=== PATIENT | female | born 1950 | race Caucasian/White ===

== ENCOUNTER 2020-08-09 16:02 | Inpatient (IN) ==
[2020-08-09] MEDS ORDERED: Naloxone 0.4 MG/ML INJ IVP PRN (17:59)
[2020-08-09] MEDS ORDERED: Acetaminophen 325 MG TABLET PO PRN (17:59)
[2020-08-09] MEDS ORDERED: Perflutren Lipid Microsphere 1.3 ML in 0.9 % Sodium Chloride 8.7 ML IVP PRN (17:59)
[2020-08-09] MEDS ORDERED: Vancomycin 0 MG in 0.9 % Sodium Chloride 250 ML IVPB SCH (18:00)
[2020-08-09] MEDS ORDERED: Azithromycin 500 MG in 0.9 % Sodium Chloride 250 ML IVPB SCH (18:00)
[2020-08-09 18:44] LABS: Basophils % 0.1 %; Hematocrit 35.2 % (35.3-44.9); Hemoglobin 12.2 g/dL (11.5-15.4); Immature Granulocytes % 0.5 % (0-4); Lymphocytes # 2.1 K/mcL (0.6-4.6); Lymphocytes % 12.3 %; Mean Corpuscular HGB Conc 34.7 g/dL (31.6-35.5); Mean Corpuscular Hemoglobin 28.8 pg (28.0-33.3); Mean Corpuscular Volume 83.2 fL (83.0-100.0); Mean Platelet Volume 9.1 fL (9.4-12.4); Neutrophils # 13.7 K/mcL (1.6-8.9); Platelet Count 285 K/mcL (140-400); Red Blood Count 4.23 M/mcL (3.82-4.97); Segmented Neutrophils % 81.1 %; White Blood Count 16.9 K/mcL (4.3-11.1)
[2020-08-09 18:44] LABS: Bilirubin,Urine Negative (Negative); Blood,Urine Negative (Negative); Clarity,Urine Clear (Clear); Color,Urine Colorless (Yellow); Glucose,Urine (UA) Normal (Normal); Ketones,Urine Negative (Negative); Leukocyte Esterase,Urine Negative (Negative); Nitrite,Urine Negative (Negative); PH,Urine 6.5 pH Units (5.0-8.0); Protein,Urine Negative (Neg-Trace); Specific Gravity,Urine < 1.005 (1.010-1.025); Urobilinogen,Urine Normal (Normal)
[2020-08-09] MEDS: *HR* OxyCODONE Immed Rel 5 MG TABLET PO PRN (18:50)
[2020-08-09] MEDS: Fluconazole 100 MG TABLET PO SCH (18:50)
[2020-08-09 18:52] LABS: Potassium,Urine 6.4 mEq/L; Sodium, Urine 10.8 mEq/L
[2020-08-09 19:03] LABS: Troponin I < 0.03 ng/mL (< 0.04)
[2020-08-09] MEDS: Piperacillin/Tazobactam 3.375 GM in 0.9 % Sodium Chloride Mini Bag 100 ML IVPB SCH ×2 (19:08→23:50)
[2020-08-09 19:34] LABS: Alanine Aminotransferase 18 Units/L (7-52); Albumin 3.8 g/dL (3.5-5.7); Albumin/Globulin Ratio 1.5 (1.1-2.2); Alkaline Phosphatase 41 Units/L (34-104); Aspartate Amino Transferase 25 Units/L (13-39); BUN/Creatinine Ratio 16 (6-26); Bilirubin,Direct 0.1 mg/dL (0.0-0.2); Bilirubin,Indirect 0.5 mg/dL (0.0-1.0); Bilirubin,Total 0.6 mg/dL (0.3-1.0); Blood Urea Nitrogen 5 mg/dL (8-23); Calcium 7.9 mg/dL (8.6-10.3); Carbon Dioxide 26 mEq/L (23-29); Chloride 81 mEq/L (98-107); Globulin 2.5 g/dL (2.4-3.5); Glucose 119 mg/dL (70-105); Magnesium 1.7 mg/dL (1.6-2.6); Osmolality,Calculated 240 (280-300); Phosphorous 1.7 mg/dL (2.7-4.5); Potassium 3.5 mEq/L (3.5-5.1); Sodium 116 mEq/L (136-145); Total Protein 6.3 g/dL (6.4-8.9); eGFR For African Americans > 60 (> 60); eGFR For Non-African Americans > 60 (> 60)
[2020-08-09] MEDS ORDERED: Acetaminophen/Aspirin/Caffeine TABLET PO PRN (19:58)
[2020-08-09 20:39] LABS: Thyroid Stimulating Hormone 0.841 mcIU/mL (0.340-5.600)
[2020-08-09 22:08] LABS: BUN/Creatinine Ratio 11 (6-26); Blood Urea Nitrogen 4 mg/dL (8-23); Calcium 7.2 mg/dL (8.6-10.3); Carbon Dioxide 27 mEq/L (23-29); Chloride 84 mEq/L (98-107); Glucose 127 mg/dL (70-105); Osmolality,Calculated 242 (280-300); Potassium 3.2 mEq/L (3.5-5.1); Sodium 117 mEq/L (136-145); eGFR For African Americans > 60 (> 60); eGFR For Non-African Americans > 60 (> 60)
[2020-08-09 22:13] LABS: Troponin I < 0.03 ng/mL (< 0.04)
[2020-08-09 23:47] LABS: BUN/Creatinine Ratio 10 (6-26); Blood Urea Nitrogen 5 mg/dL (8-23); Calcium 7.4 mg/dL (8.6-10.3); Carbon Dioxide 27 mEq/L (23-29); Chloride 85 mEq/L (98-107); Glucose 123 mg/dL (70-105); Osmolality,Calculated 245 (280-300); Potassium 3.1 mEq/L (3.5-5.1); Sodium 118 mEq/L (136-145); eGFR For African Americans > 60 (> 60); eGFR For Non-African Americans > 60 (> 60)
[2020-08-09] MEDS: *HR* Heparin 5,000 UNIT/ML VIAL SQ SCH (23:49)
[2020-08-10] MEDS: *HR* OxyCODONE Immed Rel 5 MG TABLET PO PRN ×4 (00:19→19:25)
[2020-08-10] MEDS ORDERED: Potassium Phosphate 44 MEQ in 0.9 % Sodium Chloride 250 ML IVPB ONE (00:30)
[2020-08-10 02:21] LABS: BUN/Creatinine Ratio 14 (6-26); Blood Urea Nitrogen 7 mg/dL (8-23); Calcium 7.5 mg/dL (8.6-10.3); Carbon Dioxide 27 mEq/L (23-29); Chloride 85 mEq/L (98-107); Glucose 103 mg/dL (70-105); Osmolality,Calculated 244 (280-300); Potassium 3.6 mEq/L (3.5-5.1); Sodium 118 mEq/L (136-145); Troponin I < 0.03 ng/mL (< 0.04); eGFR For African Americans > 60 (> 60); eGFR For Non-African Americans > 60 (> 60)
[2020-08-10 03:30] LABS: VBG Ionized Calcium 1.09 mmol/L (1.15-1.35)
[2020-08-10 03:53] LABS: Basophils % 0.1 %; Eosinophils % 0.1 %; Hematocrit 32.1 % (35.3-44.9); Hemoglobin 10.8 g/dL (11.5-15.4); Immature Granulocytes % 0.4 % (0-4); Lymphocytes # 1.8 K/mcL (0.6-4.6); Lymphocytes % 20.4 %; Mean Corpuscular HGB Conc 33.6 g/dL (31.6-35.5); Mean Corpuscular Hemoglobin 28.5 pg (28.0-33.3); Mean Corpuscular Volume 84.7 fL (83.0-100.0); Mean Platelet Volume 9.1 fL (9.4-12.4); Monocytes # 0.9 K/mcL (0.0-1.3); Monocytes % 9.7 %; Neutrophils # 6.2 K/mcL (1.6-8.9); Platelet Count 251 K/mcL (140-400); Red Blood Count 3.79 M/mcL (3.82-4.97); Red Cell Distribution Width 12.2 % (11.5-14.5); Segmented Neutrophils % 69.3 %; White Blood Count 8.9 K/mcL (4.3-11.1)
[2020-08-10 04:01] LABS: BUN/Creatinine Ratio 14 (6-26); Blood Urea Nitrogen 7 mg/dL (8-23); Calcium 7.6 mg/dL (8.6-10.3); Carbon Dioxide 28 mEq/L (23-29); Chloride 86 mEq/L (98-107); Glucose 115 mg/dL (70-105); Magnesium 1.9 mg/dL (1.6-2.6); Osmolality,Calculated 247 (280-300); Phosphorous 3.7 mg/dL (2.7-4.5); Potassium 3.6 mEq/L (3.5-5.1); Sodium 119 mEq/L (136-145); eGFR For African Americans > 60 (> 60); eGFR For Non-African Americans > 60 (> 60)
[2020-08-10 06:00] LABS: BUN/Creatinine Ratio 12 (6-26); Blood Urea Nitrogen 6 mg/dL (8-23); Calcium 7.6 mg/dL (8.6-10.3); Carbon Dioxide 29 mEq/L (23-29); Chloride 87 mEq/L (98-107); Glucose 117 mg/dL (70-105); Osmolality,Calculated 251 (280-300); Potassium 3.6 mEq/L (3.5-5.1); Sodium 121 mEq/L (136-145); eGFR For African Americans > 60 (> 60); eGFR For Non-African Americans > 60 (> 60)
[2020-08-10] MEDS: *HR* Heparin 5,000 UNIT/ML VIAL SQ SCH ×2 (07:17→15:07)
[2020-08-10] MEDS: Piperacillin/Tazobactam 3.375 GM in 0.9 % Sodium Chloride Mini Bag 100 ML IVPB SCH (07:17)
[2020-08-10] MEDS: Fluconazole 100 MG TABLET PO SCH (07:17)
[2020-08-10] MEDS ORDERED: Vancomycin 1,750 MG/517.5 ML IV.SOLN IVPB SCH (08:00)
[2020-08-10 08:51] LABS: BUN/Creatinine Ratio 12 (6-26); Blood Urea Nitrogen 6 mg/dL (8-23); Calcium 7.7 mg/dL (8.6-10.3); Carbon Dioxide 30 mEq/L (23-29); Chloride 87 mEq/L (98-107); Glucose 102 mg/dL (70-105); Osmolality,Calculated 252 (280-300); Potassium 3.9 mEq/L (3.5-5.1); Sodium 122 mEq/L (136-145); eGFR For African Americans > 60 (> 60); eGFR For Non-African Americans > 60 (> 60)
[2020-08-10 09:56] LABS: BUN/Creatinine Ratio 12 (6-26); Blood Urea Nitrogen 6 mg/dL (8-23); Calcium 7.8 mg/dL (8.6-10.3); Carbon Dioxide 30 mEq/L (23-29); Chloride 90 mEq/L (98-107); Glucose 133 mg/dL (70-105); Osmolality,Calculated 260 (280-300); Potassium 3.7 mEq/L (3.5-5.1); Sodium 125 mEq/L (136-145); eGFR For African Americans > 60 (> 60); eGFR For Non-African Americans > 60 (> 60)
[2020-08-10] MEDS ORDERED: lamoTRIgine 100 MG TABLET PO SCH (10:15)
[2020-08-10] MEDS ORDERED: ALPRAZolam 1 MG TABLET PO SCH (10:15)
[2020-08-10] MEDS ORDERED: D5% in Water 1,000 ML IVC SCH ×2 (10:15→12:58)
[2020-08-10 11:43] LABS: BUN/Creatinine Ratio 12 (6-26); Blood Urea Nitrogen 7 mg/dL (8-23); Calcium 7.6 mg/dL (8.6-10.3); Carbon Dioxide 31 mEq/L (23-29); Chloride 91 mEq/L (98-107); Glucose 116 mg/dL (70-105); Osmolality,Calculated 259 (280-300); Potassium 3.9 mEq/L (3.5-5.1); Sodium 125 mEq/L (136-145); eGFR For African Americans > 60 (> 60); eGFR For Non-African Americans > 60 (> 60)
[2020-08-10] MEDS ORDERED: Naloxone 0.4 MG/ML INJ IVP PRN (12:58)
[2020-08-10 14:07] LABS: BUN/Creatinine Ratio 12 (6-26); Blood Urea Nitrogen 8 mg/dL (8-23); Carbon Dioxide 28 mEq/L (23-29); Chloride 90 mEq/L (98-107); Glucose 144 mg/dL (70-105); Osmolality,Calculated 259 (280-300); Potassium 3.8 mEq/L (3.5-5.1); Sodium 124 mEq/L (136-145); eGFR For African Americans > 60 (> 60); eGFR For Non-African Americans > 60 (> 60)
[2020-08-10] MEDS ORDERED: Piperacillin/Tazobactam 3.375 GM in D5% in Water (Mini-Bag+) 100 ML IVPB SCH ×2 (16:00)
[2020-08-10 16:01] LABS: BUN/Creatinine Ratio 13 (6-26); Blood Urea Nitrogen 10 mg/dL (8-23); Calcium 7.9 mg/dL (8.6-10.3); Carbon Dioxide 29 mEq/L (23-29); Chloride 90 mEq/L (98-107); Glucose 116 mg/dL (70-105); Osmolality,Calculated 258 (280-300); Potassium 3.9 mEq/L (3.5-5.1); Sodium 124 mEq/L (136-145); eGFR For African Americans > 60 (> 60); eGFR For Non-African Americans > 60 (> 60)
[2020-08-10 17:46] LABS: BUN/Creatinine Ratio 13 (6-26); Blood Urea Nitrogen 11 mg/dL (8-23); Calcium 8.1 mg/dL (8.6-10.3); Carbon Dioxide 30 mEq/L (23-29); Chloride 91 mEq/L (98-107); Glucose 113 mg/dL (70-105); Osmolality,Calculated 262 (280-300); Potassium 3.9 mEq/L (3.5-5.1); Sodium 126 mEq/L (136-145); eGFR For African Americans > 60 (> 60); eGFR For Non-African Americans > 60 (> 60)
[2020-08-10] MEDS ORDERED: Azithromycin 250 MG TABLET PO SCH ×2 (18:00)
[2020-08-10] MEDS: lamoTRIgine 100 MG TABLET PO SCH (19:25)
[2020-08-10] MEDS: ALPRAZolam 1 MG TABLET PO SCH (19:26)
[2020-08-10] MEDS ORDERED: Vancomycin 1,750 MG in D5% in Water 500 ML IVPB SCH ×2 (20:00)
[2020-08-10 20:45] LABS: BUN/Creatinine Ratio 14 (6-26); Blood Urea Nitrogen 12 mg/dL (8-23); Calcium 7.9 mg/dL (8.6-10.3); Carbon Dioxide 30 mEq/L (23-29); Chloride 93 mEq/L (98-107); Glucose 130 mg/dL (70-105); Osmolality,Calculated 266 (280-300); Potassium 3.5 mEq/L (3.5-5.1); Sodium 127 mEq/L (136-145); eGFR For African Americans > 60 (> 60); eGFR For Non-African Americans > 60 (> 60)
[2020-08-11 02:09] LABS: Calcium 7.7 mg/dL (8.6-10.3)
[2020-08-11] MEDS: *HR* Heparin 5,000 UNIT/ML VIAL SQ SCH ×3 (02:26→14:23)
[2020-08-11] MEDS ORDERED: Piperacillin/Tazobactam 3.375 GM in D5% in Water (Mini-Bag+) 100 ML IVPB SCH (03:00)
[2020-08-11] MEDS: Piperacillin/Tazobactam 3.375 GM in D5% in Water (Mini-Bag+) 100 ML IVPB SCH ×3 (03:14→20:44)
[2020-08-11 06:20] LABS: Basophils % 0.2 %; Eosinophils # 0.1 K/mcL (0.0-0.6); Eosinophils % 0.8 %; Hematocrit 32.6 % (35.3-44.9); Hemoglobin 10.1 g/dL (11.5-15.4); Immature Granulocytes % 0.5 % (0-4); Lymphocytes # 1.9 K/mcL (0.6-4.6); Lymphocytes % 17.5 %; Mean Corpuscular Hemoglobin 28.2 pg (28.0-33.3); Mean Platelet Volume 8.6 fL (9.4-12.4); Monocytes % 9.2 %; Neutrophils # 7.9 K/mcL (1.6-8.9); Platelet Count 236 K/mcL (140-400); Red Blood Count 3.58 M/mcL (3.82-4.97); Red Cell Distribution Width 13.1 % (11.5-14.5); Segmented Neutrophils % 71.8 %
[2020-08-11 06:24] LABS: Mean Corpuscular Volume 91.1 fL (83.0-100.0)
[2020-08-11 06:40] LABS: Calcium 7.6 mg/dL (8.6-10.3); Magnesium 1.8 mg/dL (1.6-2.6); Phosphorous 4.3 mg/dL (2.7-4.5); Potassium 4.2 mEq/L (3.5-5.1)
[2020-08-11] MEDS: *HR* OxyCODONE Immed Rel 5 MG TABLET PO PRN ×2 (06:45→14:22)
[2020-08-11 07:27] LABS: VBG Ionized Calcium 1.11 mmol/L (1.15-1.35)
[2020-08-11] MEDS: Fluconazole 100 MG TABLET PO SCH (08:12)
[2020-08-11] MEDS: ALPRAZolam 1 MG TABLET PO SCH ×2 (08:12→20:46)
[2020-08-11] MEDS: lamoTRIgine 100 MG TABLET PO SCH ×2 (08:12→20:46)
[2020-08-11 08:36] LABS: Calcium 7.9 mg/dL (8.6-10.3); Potassium 4.3 mEq/L (3.5-5.1)
[2020-08-11] MEDS: Cyanocobalamin (B-12) 1,000 MCG TABLET PO SCH (10:26)
[2020-08-11] MEDS: Acetaminophen 325 MG TABLET PO PRN ×2 (10:28→20:45)
[2020-08-11] MEDS ORDERED: 0.9 % Sodium Chloride 1,000 ML IVC SCH (11:45)
[2020-08-11 17:54] LABS: Calcium 7.7 mg/dL (8.6-10.3); Potassium 4.1 mEq/L (3.5-5.1)
[2020-08-11] MEDS: *HR* OxyCODONE/APAP 10/325 TABLET PO PRN (18:22)
[2020-08-11] MEDS: Melatonin 3 MG TABLET PO PRN (20:46)
[2020-08-11] MEDS: Fluticasone Propionate Nasal 50 MCG/SPRAY BOTTLE NS SCH (20:47)
[2020-08-12] MEDS: *HR* Heparin 5,000 UNIT/ML VIAL SQ SCH ×4 (00:18→22:43)
[2020-08-12] MEDS: Piperacillin/Tazobactam 3.375 GM in D5% in Water (Mini-Bag+) 100 ML IVPB SCH ×2 (04:52→18:49)
[2020-08-12 05:16] LABS: Basophils % 0.2 %; Eosinophils # 0.2 K/mcL (0.0-0.6); Eosinophils % 2.1 %; Hematocrit 32.8 % (35.3-44.9); Hemoglobin 10.2 g/dL (11.5-15.4); Immature Granulocytes % 0.6 % (0-4); Lymphocytes # 1.5 K/mcL (0.6-4.6); Lymphocytes % 15.4 %; Mean Corpuscular HGB Conc 31.1 g/dL (31.6-35.5); Mean Corpuscular Volume 93.2 fL (83.0-100.0); Mean Platelet Volume 8.5 fL (9.4-12.4); Monocytes # 0.9 K/mcL (0.0-1.3); Monocytes % 9.5 %; Platelet Count 237 K/mcL (140-400); Red Blood Count 3.52 M/mcL (3.82-4.97); Red Cell Distribution Width 13.2 % (11.5-14.5); Segmented Neutrophils % 72.2 %; White Blood Count 9.7 K/mcL (4.3-11.1)
[2020-08-12 05:53] LABS: Calcium 7.6 mg/dL (8.6-10.3); Potassium 4.8 mEq/L (3.5-5.1)
[2020-08-12] MEDS ORDERED: 0.9 % Sodium Chloride 1,000 ML IVC SCH (07:11)
[2020-08-12] MEDS: *HR* OxyCODONE/APAP 10/325 TABLET PO PRN (08:27)
[2020-08-12] MEDS: ALPRAZolam 1 MG TABLET PO SCH ×2 (08:27→22:26)
[2020-08-12] MEDS: Fluconazole 100 MG TABLET PO SCH (08:28)
[2020-08-12] MEDS: Cyanocobalamin (B-12) 1,000 MCG TABLET PO SCH (08:28)
[2020-08-12] MEDS: lamoTRIgine 100 MG TABLET PO SCH ×2 (08:28→22:43)
[2020-08-12] MEDS: Fluticasone Propionate Nasal 50 MCG/SPRAY BOTTLE NS SCH ×2 (08:29→22:43)
[2020-08-12 11:55] LABS: ABG Base Excess -3 mEq/L (-2 to 3); ABG HCO3 26 mEq/L (21-27); ABG Oxygen Saturation 94 % (95-98); ABG PCO2 70 mmHg (35-45); ABG PH 7.18 pH Units (7.32-7.45); ABG PO2 93 mmHg (85-104); ABG TCO2 28 mEq/L (20-26)
[2020-08-12] MEDS ORDERED: Ipratropium/Albuterol Neb 3 ML IH PRN (12:11)
[2020-08-12] MEDS: 0.9 % Sodium Chloride 1,000 ML IVC SCH ×2 (12:13→23:58)
[2020-08-12 15:38] LABS: ABG Base Excess -3 mEq/L (-2 to 3); ABG HCO3 27 mEq/L (21-27); ABG Oxygen Saturation 94 % (95-98); ABG PCO2 70 mmHg (35-45); ABG PH 7.19 pH Units (7.32-7.45); ABG PO2 88 mmHg (85-104); ABG TCO2 29 mEq/L (20-26)
[2020-08-12] MEDS: Ondansetron 4 MG/2 ML VIAL IVP SCH ×3 (15:48→22:44)
[2020-08-12] MEDS ORDERED: Ringers Solution, Lactated 500 ML IVC ONE (15:49)
[2020-08-12 16:47] LABS: Basophils % 0.2 %; Eosinophils # 0.2 K/mcL (0.0-0.6); Eosinophils % 1.7 %; Hemoglobin 9.6 g/dL (11.5-15.4); Immature Granulocytes % 0.5 % (0-4); Lymphocytes # 1.8 K/mcL (0.6-4.6); Lymphocytes % 16.4 %; Mean Corpuscular Hemoglobin 28.7 pg (28.0-33.3); Mean Corpuscular Volume 92.8 fL (83.0-100.0); Mean Platelet Volume 8.8 fL (9.4-12.4); Monocytes % 9.2 %; Neutrophils # 7.7 K/mcL (1.6-8.9); Platelet Count 227 K/mcL (140-400); Red Blood Count 3.34 M/mcL (3.82-4.97); Red Cell Distribution Width 13.2 % (11.5-14.5); White Blood Count 10.6 K/mcL (4.3-11.1)
[2020-08-12 20:27] LABS: Calcium 7.6 mg/dL (8.6-10.3); Potassium 4.8 mEq/L (3.5-5.1)
[2020-08-12 22:20] LABS: ABG Base Excess -5 mEq/L (-2 to 3); ABG HCO3 25 mEq/L (21-27); ABG Oxygen Saturation 95 % (95-98); ABG PCO2 70 mmHg (35-45); ABG PH 7.16 pH Units (7.32-7.45); ABG PO2 99 mmHg (85-104); ABG TCO2 27 mEq/L (20-26)
[2020-08-12 23:23] LABS: Calcium 7.5 mg/dL (8.6-10.3); Potassium 4.8 mEq/L (3.5-5.1)
[2020-08-13 00:34] LABS: ABG Base Excess -5 mEq/L (-2 to 3); ABG HCO3 25 mEq/L (21-27); ABG Oxygen Saturation 98 % (95-98); ABG PCO2 66 mmHg (35-45); ABG PH 7.18 pH Units (7.32-7.45); ABG PO2 128 mmHg (85-104); ABG TCO2 27 mEq/L (20-26); Blood Gas Modality avaps; Blood Gas Pressure Support 35 cm H2O; Blood Gas VT 500 cc
[2020-08-13 04:10] LABS: Basophils % 0.1 %; Eosinophils # 0.1 K/mcL (0.0-0.6); Eosinophils % 0.9 %; Hemoglobin 9.6 g/dL (11.5-15.4); Immature Granulocytes % 0.5 % (0-4); Lymphocytes # 1.2 K/mcL (0.6-4.6); Lymphocytes % 13.3 %; Mean Corpuscular Hemoglobin 28.7 pg (28.0-33.3); Mean Corpuscular Volume 92.5 fL (83.0-100.0); Mean Platelet Volume 8.5 fL (9.4-12.4); Monocytes # 0.7 K/mcL (0.0-1.3); Monocytes % 7.5 %; Neutrophils # 6.7 K/mcL (1.6-8.9); Platelet Count 219 K/mcL (140-400); Red Blood Count 3.35 M/mcL (3.82-4.97); Red Cell Distribution Width 13.2 % (11.5-14.5); Segmented Neutrophils % 77.7 %; White Blood Count 8.6 K/mcL (4.3-11.1)
[2020-08-13 04:12] LABS: VBG HCO3 23 mEq/L (21-27); VBG PCO2 56 mmHg (41-51); VBG PH 7.22 pH Units (7.32-7.42); VBG PO2 192 mmHg (25-50)
[2020-08-13 04:33] LABS: Calcium 7.6 mg/dL (8.6-10.3); Phosphorous 7.5 mg/dL (2.7-4.5); Potassium 5.1 mEq/L (3.5-5.1); Uric Acid 5.3 mg/dL (2.3-7.6)
[2020-08-13] MEDS: Piperacillin/Tazobactam 3.375 GM in D5% in Water (Mini-Bag+) 100 ML IVPB SCH ×2 (05:15→17:23)
[2020-08-13] MEDS: Ondansetron 4 MG/2 ML VIAL IVP SCH ×4 (05:15→23:17)
[2020-08-13] MEDS ORDERED: *HR* Heparin 5,000 UNIT/ML VIAL ONE ×2 (08:40→09:10)
[2020-08-13 09:00] LABS: ABG Base Excess -5 mEq/L (-2 to 3); ABG HCO3 23 mEq/L (21-27); ABG Oxygen Saturation 96 % (95-98); ABG PCO2 58 mmHg (35-45); ABG PH 7.21 pH Units (7.32-7.45); ABG PO2 101 mmHg (85-104); ABG TCO2 25 mEq/L (20-26); Blood Gas Modality avaps; Blood Gas Pressure Support 23 cm H2O; Blood Gas VT 500 cc
[2020-08-13] MEDS: lamoTRIgine 100 MG TABLET PO SCH ×2 (09:04→20:30)
[2020-08-13] MEDS: *HR* Heparin 5,000 UNIT/ML VIAL SQ SCH ×3 (09:04→23:21)
[2020-08-13] MEDS: Fluconazole 100 MG TABLET PO SCH (09:05)
[2020-08-13] MEDS: Cyanocobalamin (B-12) 1,000 MCG TABLET PO SCH (09:05)
[2020-08-13] MEDS: ALPRAZolam 1 MG TABLET PO SCH ×2 (09:05→20:31)
[2020-08-13] MEDS ORDERED: Heparin 1,000 UNITS/500 mL 500 ML ONE (09:06)
[2020-08-13] MEDS: Fluticasone Propionate Nasal 50 MCG/SPRAY BOTTLE NS SCH ×2 (09:17→20:31)
[2020-08-13] MEDS ORDERED: *HR* Heparin 10,000 UNIT/10 ML VIAL IV PRN (11:38)
[2020-08-13] MEDS ORDERED: 0.9 % Sodium Chloride 250 ML IVC PRN (11:38)
[2020-08-13] MEDS ORDERED: 0.9 % Sodium Chloride 1,000 ML PRIME SCH (11:45)
[2020-08-13] MEDS: 0.9 % Sodium Chloride 1,000 ML IVC SCH (12:39)
[2020-08-13 13:12] LABS: Hepatitis B Surface Antibody 111.19 mIU/mL
[2020-08-13 13:24] LABS: Hepatitis B Surface Antigen Nonreactive (Nonreactive)
[2020-08-13] MEDS: Acetaminophen 325 MG TABLET PO PRN (13:54)
[2020-08-13] MEDS: *HR* OxyCODONE/APAP 10/325 TABLET PO PRN ×2 (14:02→20:30)
[2020-08-13 17:39] LABS: ABG Base Excess 1 mEq/L (-2 to 3); ABG HCO3 29 mEq/L (21-27); ABG Oxygen Saturation 96 % (95-98); ABG PCO2 65 mmHg (35-45); ABG PH 7.26 pH Units (7.32-7.45); ABG PO2 93 mmHg (85-104); ABG TCO2 31 mEq/L (20-26); Blood Gas Modality avaps; Blood Gas Pressure Support 23 cm H2O; Blood Gas VT 500 cc
[2020-08-14 03:17] LABS: Basophils % 0.2 %; Eosinophils # 0.1 K/mcL (0.0-0.6); Eosinophils % 2.2 %; Hematocrit 29.3 % (35.3-44.9); Hemoglobin 9.1 g/dL (11.5-15.4); Immature Granulocytes % 0.3 % (0-4); Lymphocytes # 1.2 K/mcL (0.6-4.6); Lymphocytes % 19.6 %; Mean Corpuscular HGB Conc 31.1 g/dL (31.6-35.5); Mean Corpuscular Hemoglobin 28.6 pg (28.0-33.3); Mean Corpuscular Volume 92.1 fL (83.0-100.0); Mean Platelet Volume 8.6 fL (9.4-12.4); Monocytes # 0.7 K/mcL (0.0-1.3); Monocytes % 11.5 %; Neutrophils # 4.2 K/mcL (1.6-8.9); Platelet Count 188 K/mcL (140-400); Red Blood Count 3.18 M/mcL (3.82-4.97); Red Cell Distribution Width 13.3 % (11.5-14.5); Segmented Neutrophils % 66.2 %; White Blood Count 6.3 K/mcL (4.3-11.1)
[2020-08-14 03:32] LABS: Calcium 7.4 mg/dL (8.6-10.3); Phosphorous 6.4 mg/dL (2.7-4.5); Potassium 4.7 mEq/L (3.5-5.1)
[2020-08-14] MEDS: Piperacillin/Tazobactam 3.375 GM in D5% in Water (Mini-Bag+) 100 ML IVPB SCH ×2 (05:16→17:46)
[2020-08-14] MEDS: Ondansetron 4 MG/2 ML VIAL IVP SCH ×4 (05:17→23:23)
[2020-08-14] MEDS ORDERED: *HR* Heparin 10,000 UNIT/10 ML VIAL IV PRN (08:11)
[2020-08-14] MEDS ORDERED: Albumin 25% 25gram/100mL 25 GM/100 ML IV.SOLN IVPB PRN (08:11)
[2020-08-14] MEDS ORDERED: 0.9 % Sodium Chloride 250 ML IVC PRN (08:11)
[2020-08-14] MEDS: *HR* OxyCODONE/APAP 10/325 TABLET PO PRN (09:10)
[2020-08-14] MEDS: Cyanocobalamin (B-12) 1,000 MCG TABLET PO SCH (09:10)
[2020-08-14] MEDS: Fluconazole 100 MG TABLET PO SCH (09:10)
[2020-08-14] MEDS: lamoTRIgine 100 MG TABLET PO SCH ×2 (09:10→21:17)
[2020-08-14] MEDS: *HR* Heparin 5,000 UNIT/ML VIAL SQ SCH ×3 (09:11→23:23)
[2020-08-14] MEDS: ALPRAZolam 1 MG TABLET PO SCH ×3 (09:19→23:25)
[2020-08-14] MEDS: Fluticasone Propionate Nasal 50 MCG/SPRAY BOTTLE NS SCH ×2 (09:19→21:18)
[2020-08-14] MEDS ORDERED: Aspirin Enteric Coated 81 MG Tablet PO ONE (15:15)
[2020-08-14] MEDS: Sennosides/Docusate Sodium TABLET PO SCH (21:15)
[2020-08-15 03:45] LABS: Eosinophils # 0.1 K/mcL (0.0-0.6); Eosinophils % 1.6 %; Hematocrit 26.6 % (35.3-44.9); Immature Granulocytes % 0.4 % (0-4); Mean Corpuscular HGB Conc 30.1 g/dL (31.6-35.5); Mean Corpuscular Hemoglobin 28.1 pg (28.0-33.3); Mean Corpuscular Volume 93.3 fL (83.0-100.0); Mean Platelet Volume 8.6 fL (9.4-12.4); Monocytes # 0.8 K/mcL (0.0-1.3); Monocytes % 15.3 %; Neutrophils # 3.1 K/mcL (1.6-8.9); Platelet Count 171 K/mcL (140-400); Red Blood Count 2.85 M/mcL (3.82-4.97); Red Cell Distribution Width 13.4 % (11.5-14.5); Segmented Neutrophils % 61.7 %
[2020-08-15 04:04] LABS: Calcium 7.3 mg/dL (8.6-10.3); Magnesium 1.8 mg/dL (1.6-2.6); Phosphorous 5.3 mg/dL (2.7-4.5); Potassium 4.5 mEq/L (3.5-5.1)
[2020-08-15] MEDS: Ondansetron 4 MG/2 ML VIAL IVP SCH ×2 (05:48→11:44)
[2020-08-15] MEDS ORDERED: 0.9 % Sodium Chloride 1,000 ML PRIME SCH (07:15)
[2020-08-15] MEDS ORDERED: 0.9 % Sodium Chloride 250 ML IVC PRN (07:15)
[2020-08-15] MEDS ORDERED: *HR* Heparin 10,000 UNIT/10 ML VIAL IV PRN (07:15)
[2020-08-15] MEDS ORDERED: Albumin 25% 25gram/100mL 25 GM/100 ML IV.SOLN IVPB PRN (07:15)
[2020-08-15] MEDS: Cyanocobalamin (B-12) 1,000 MCG TABLET PO SCH (07:28)
[2020-08-15] MEDS: Piperacillin/Tazobactam 3.375 GM in D5% in Water (Mini-Bag+) 100 ML IVPB SCH ×2 (07:30→16:51)
[2020-08-15] MEDS: Acetaminophen 325 MG TABLET PO PRN (09:26)
[2020-08-15] MEDS: *HR* OxyCODONE/APAP 10/325 TABLET PO PRN ×2 (11:42→18:49)
[2020-08-15] MEDS: Sennosides/Docusate Sodium TABLET PO SCH ×2 (11:43→20:38)
[2020-08-15] MEDS: ALPRAZolam 1 MG TABLET PO SCH ×2 (11:43→20:38)
[2020-08-15] MEDS: Aspirin Enteric Coated 81 MG Tablet PO SCH (11:43)
[2020-08-15] MEDS: Fluconazole 100 MG TABLET PO SCH (11:43)
[2020-08-15] MEDS: lamoTRIgine 100 MG TABLET PO SCH ×2 (11:43→20:38)
[2020-08-15] MEDS: *HR* Heparin 5,000 UNIT/ML VIAL SQ SCH ×2 (11:44→16:52)
[2020-08-15] MEDS: Fluticasone Propionate Nasal 50 MCG/SPRAY BOTTLE NS SCH ×2 (11:45→20:41)
[2020-08-15] MEDS: Melatonin 3 MG TABLET PO PRN (18:49)
[2020-08-16] MEDS: *HR* Heparin 5,000 UNIT/ML VIAL SQ SCH ×3 (01:03→16:16)
[2020-08-16 07:10] LABS: Calcium 8.3 mg/dL (8.6-10.3); Potassium 4.3 mEq/L (3.5-5.1)
[2020-08-16 07:22] LABS: Magnesium < 0.5 mg/dL (1.6-2.6); Phosphorous 4.2 mg/dL (2.7-4.5)
[2020-08-16] MEDS: *HR* OxyCODONE/APAP 10/325 TABLET PO PRN ×2 (07:58→16:16)
[2020-08-16] MEDS: lamoTRIgine 100 MG TABLET PO SCH ×2 (09:24→20:41)
[2020-08-16] MEDS: Sennosides/Docusate Sodium TABLET PO SCH ×2 (09:24→20:41)
[2020-08-16] MEDS: ALPRAZolam 1 MG TABLET PO SCH ×2 (09:24→20:41)
[2020-08-16] MEDS: Aspirin Enteric Coated 81 MG Tablet PO SCH (09:25)
[2020-08-16] MEDS: Fluticasone Propionate Nasal 50 MCG/SPRAY BOTTLE NS SCH ×2 (09:31→20:41)
[2020-08-16] MEDS: Cyanocobalamin (B-12) 1,000 MCG TABLET PO SCH (09:46)
[2020-08-16 10:53] LABS: ABG Base Excess 5 mEq/L (-2 to 3); ABG HCO3 32 mEq/L (21-27); ABG Oxygen Saturation 80 % (95-98); ABG PCO2 64 mmHg (35-45); ABG PH 7.31 pH Units (7.32-7.45); ABG PO2 50 mmHg (85-104); ABG TCO2 34 mEq/L (20-26)
[2020-08-16] MEDS: Acetaminophen 325 MG TABLET PO PRN (20:56)
[2020-08-16] MEDS: Ondansetron 4 MG/2 ML VIAL IVP PRN (20:56)
[2020-08-17] MEDS: *HR* Heparin 5,000 UNIT/ML VIAL SQ SCH ×3 (01:12→15:50)
[2020-08-17] MEDS: *HR* OxyCODONE/APAP 10/325 TABLET PO PRN ×4 (01:12→20:26)
[2020-08-17] MEDS: Artificial Tears SOLN 15 ML BOTTLE BOTH EYES PRN (02:20)
[2020-08-17 03:23] LABS: Calcium 8.3 mg/dL (8.6-10.3); Potassium 4.4 mEq/L (3.5-5.1)
[2020-08-17] MEDS: Acetaminophen 325 MG TABLET PO PRN ×2 (06:34→18:58)
[2020-08-17] MEDS ORDERED: 0.9 % Sodium Chloride 250 ML IVC PRN (07:36)
[2020-08-17] MEDS ORDERED: *HR* Heparin 10,000 UNIT/10 ML VIAL IV PRN (07:36)
[2020-08-17] MEDS: Sennosides/Docusate Sodium TABLET PO SCH ×2 (09:11→20:23)
[2020-08-17] MEDS: Aspirin Enteric Coated 81 MG Tablet PO SCH (09:11)
[2020-08-17] MEDS: lamoTRIgine 100 MG TABLET PO SCH ×2 (09:11→20:23)
[2020-08-17] MEDS: Magnesium Oxide 400 MG TABLET PO SCH ×2 (09:11→20:23)
[2020-08-17] MEDS: Fluticasone Propionate Nasal 50 MCG/SPRAY BOTTLE NS SCH ×2 (09:12→20:23)
[2020-08-17] MEDS: Cyanocobalamin (B-12) 1,000 MCG TABLET PO SCH (09:12)
[2020-08-17] MEDS: ALPRAZolam 1 MG TABLET PO SCH ×2 (09:12→20:23)
[2020-08-17] MEDS: Melatonin 3 MG TABLET PO PRN (21:50)
[2020-08-18] MEDS: *HR* Heparin 5,000 UNIT/ML VIAL SQ SCH ×3 (00:47→15:19)
[2020-08-18] MEDS: *HR* OxyCODONE/APAP 10/325 TABLET PO PRN ×3 (04:34→21:40)
[2020-08-18 05:20] LABS: Hematocrit 27.2 % (35.3-44.9); Hemoglobin 8.4 g/dL (11.5-15.4)
[2020-08-18 05:39] LABS: Calcium 8.5 mg/dL (8.6-10.3); Magnesium 2.2 mg/dL (1.6-2.6); Phosphorous 3.4 mg/dL (2.7-4.5); Potassium 4.1 mEq/L (3.5-5.1)
[2020-08-18] MEDS: Magnesium Oxide 400 MG TABLET PO SCH ×2 (10:08→21:44)
[2020-08-18] MEDS: Aspirin Enteric Coated 81 MG Tablet PO SCH (10:09)
[2020-08-18] MEDS: Fluticasone Propionate Nasal 50 MCG/SPRAY BOTTLE NS SCH ×2 (10:10→21:45)
[2020-08-18] MEDS: Artificial Tears SOLN 15 ML BOTTLE BOTH EYES PRN (10:10)
[2020-08-18] MEDS: ALPRAZolam 1 MG TABLET PO SCH ×2 (10:10→21:39)
[2020-08-18] MEDS: Cyanocobalamin (B-12) 1,000 MCG TABLET PO SCH (10:11)
[2020-08-18] MEDS: Acetaminophen 325 MG TABLET PO PRN ×2 (10:11→17:44)
[2020-08-18] MEDS: lamoTRIgine 100 MG TABLET PO SCH ×2 (10:11→21:44)
[2020-08-18] MEDS: Sennosides/Docusate Sodium TABLET PO SCH ×2 (10:12→21:39)
[2020-08-19] MEDS: Acetaminophen 325 MG TABLET PO PRN ×2 (01:19→15:36)
[2020-08-19] MEDS: Melatonin 3 MG TABLET PO PRN ×2 (01:20→22:29)
[2020-08-19] MEDS: *HR* Heparin 5,000 UNIT/ML VIAL SQ SCH ×3 (01:21→17:14)
[2020-08-19] MEDS: *HR* OxyCODONE/APAP 10/325 TABLET PO PRN ×3 (03:50→22:29)
[2020-08-19 04:36] LABS: Calcium 8.3 mg/dL (8.6-10.3); Phosphorous 3.8 mg/dL (2.7-4.5); Potassium 4.3 mEq/L (3.5-5.1)
[2020-08-19 05:27] LABS: Magnesium 2.1 mg/dL (1.6-2.6)
[2020-08-19] MEDS: ALPRAZolam 1 MG TABLET PO SCH ×2 (08:29→22:30)
[2020-08-19] MEDS: Sennosides/Docusate Sodium TABLET PO SCH ×2 (08:31→22:30)
[2020-08-19] MEDS: lamoTRIgine 100 MG TABLET PO SCH ×2 (08:32→22:30)
[2020-08-19] MEDS: Aspirin Enteric Coated 81 MG Tablet PO SCH (08:32)
[2020-08-19] MEDS ORDERED: 0.9 % Sodium Chloride 250 ML IVC PRN (08:32)
[2020-08-19] MEDS ORDERED: *HR* Heparin 10,000 UNIT/10 ML VIAL IV PRN (08:32)
[2020-08-19] MEDS: Magnesium Oxide 400 MG TABLET PO SCH ×2 (08:40→22:30)
[2020-08-19] MEDS ORDERED: 0.9 % Sodium Chloride 1,000 ML PRIME SCH (08:45)
[2020-08-19] MEDS ORDERED: Albumin 25% 25gram/100mL 25 GM/100 ML IV.SOLN IVPB ONE (15:01)
[2020-08-19] MEDS: Cyanocobalamin (B-12) 1,000 MCG TABLET PO SCH (15:20)
[2020-08-19] MEDS: Ondansetron 4 MG/2 ML VIAL IVP PRN (17:29)
[2020-08-19] MEDS ORDERED: Furosemide 40 MG/4 ML VIAL IVP ONE (17:39)
[2020-08-19] MEDS: Fluticasone Propionate Nasal 50 MCG/SPRAY BOTTLE NS SCH ×2 (18:04→22:31)
[2020-08-20] MEDS ORDERED: Furosemide 40 MG/4 ML VIAL IVP ONE (01:00)
[2020-08-20] MEDS: *HR* Heparin 5,000 UNIT/ML VIAL SQ SCH ×4 (01:04→23:30)
[2020-08-20 01:39] LABS: Hematocrit 24.4 % (35.3-44.9); Hemoglobin 7.8 g/dL (11.5-15.4); Mean Corpuscular Hemoglobin 29.4 pg (28.0-33.3); Mean Corpuscular Volume 92.1 fL (83.0-100.0); Mean Platelet Volume 8.9 fL (9.4-12.4); Platelet Count 140 K/mcL (140-400); Red Blood Count 2.65 M/mcL (3.82-4.97); Red Cell Distribution Width 12.8 % (11.5-14.5); White Blood Count 5.9 K/mcL (4.3-11.1)
[2020-08-20 01:57] LABS: Calcium 8.3 mg/dL (8.6-10.3); Phosphorous 3.2 mg/dL (2.7-4.5); Potassium 4.3 mEq/L (3.5-5.1)
[2020-08-20] MEDS: Acetaminophen 325 MG TABLET PO PRN ×2 (02:09→21:15)
[2020-08-20] MEDS: *HR* OxyCODONE/APAP 10/325 TABLET PO PRN ×4 (04:56→23:30)
[2020-08-20] MEDS: Magnesium Oxide 400 MG TABLET PO SCH ×2 (08:03→19:56)
[2020-08-20] MEDS: Sennosides/Docusate Sodium TABLET PO SCH ×2 (08:03→19:56)
[2020-08-20] MEDS: Aspirin Enteric Coated 81 MG Tablet PO SCH (08:03)
[2020-08-20] MEDS: lamoTRIgine 100 MG TABLET PO SCH ×2 (08:04→19:56)
[2020-08-20] MEDS: Cyanocobalamin (B-12) 1,000 MCG TABLET PO SCH (08:04)
[2020-08-20] MEDS: ALPRAZolam 1 MG TABLET PO SCH ×2 (08:04→19:54)
[2020-08-20] MEDS: Fluticasone Propionate Nasal 50 MCG/SPRAY BOTTLE NS SCH ×2 (19:58→20:01)
[2020-08-20] MEDS: Melatonin 3 MG TABLET PO PRN (21:15)
[2020-08-21 03:29] LABS: Hemoglobin 7.8 g/dL (11.5-15.4); Mean Corpuscular Hemoglobin 28.4 pg (28.0-33.3); Mean Corpuscular Volume 94.5 fL (83.0-100.0); Mean Platelet Volume 8.8 fL (9.4-12.4); Platelet Count 147 K/mcL (140-400); Red Blood Count 2.75 M/mcL (3.82-4.97); Red Cell Distribution Width 13.2 % (11.5-14.5); White Blood Count 6.9 K/mcL (4.3-11.1)
[2020-08-21 03:59] LABS: Calcium 8.5 mg/dL (8.6-10.3); Magnesium 2.1 mg/dL (1.6-2.6); Phosphorous 3.9 mg/dL (2.7-4.5)
[2020-08-21 04:02] LABS: % Iron Saturation 9 % (15-50); Iron 26 mcg/dL (50-170); Transferrin 197 mg/dL (203-362)
[2020-08-21 04:19] LABS: Ferritin 67 ng/mL (10-120)
[2020-08-21 04:24] LABS: Folate 20.3 ng/mL (3.0-16.0)
[2020-08-21 04:27] LABS: Vitamin B12 > 1500 pg/mL (250-1100)
[2020-08-21] MEDS: Acetaminophen 325 MG TABLET PO PRN ×2 (04:35→21:17)
[2020-08-21] MEDS: *HR* OxyCODONE/APAP 10/325 TABLET PO PRN ×4 (05:52→23:49)
[2020-08-21] MEDS ORDERED: Iron Sucrose Complex 400 MG in 0.9 % Sodium Chloride 250 ML IVPB ONE (07:42)
[2020-08-21] MEDS ORDERED: Multivit/Ca/Min/Fe/FA 1 TAB TABLET PO SCH (09:00)
[2020-08-21] MEDS: lamoTRIgine 100 MG TABLET PO SCH ×2 (09:20→22:23)
[2020-08-21] MEDS: Magnesium Oxide 400 MG TABLET PO SCH ×2 (09:20→22:23)
[2020-08-21] MEDS: Cyanocobalamin (B-12) 1,000 MCG TABLET PO SCH (09:21)
[2020-08-21] MEDS: Sennosides/Docusate Sodium TABLET PO SCH ×2 (09:21→22:23)
[2020-08-21] MEDS: ALPRAZolam 1 MG TABLET PO SCH ×2 (09:21→22:23)
[2020-08-21] MEDS: Aspirin Enteric Coated 81 MG Tablet PO SCH (09:21)
[2020-08-21] MEDS: *HR* Heparin 5,000 UNIT/ML VIAL SQ SCH ×3 (09:22→23:50)
[2020-08-21] MEDS: Fluticasone Propionate Nasal 50 MCG/SPRAY BOTTLE NS SCH ×2 (09:22→22:24)
[2020-08-21] MEDS ORDERED: Saline Nasal Spray 44 ML BOTTLE NS PRN (13:12)
[2020-08-21] MEDS ORDERED: *HR* OxyCODONE/APAP 10/325 TABLET PO PRN (13:15)
[2020-08-21] MEDS: amLODIPine 5 MG TABLET PO SCH (17:46)
[2020-08-21] MEDS: Chlorhexidine Rinse 15 ML MOUTHWASH MM SCH (22:23)
[2020-08-21] MEDS: Ondansetron 4 MG/2 ML VIAL IVP PRN (22:32)
[2020-08-22] MEDS: Acetaminophen 325 MG TABLET PO PRN (03:54)
[2020-08-22 04:36] LABS: Hematocrit 25.9 % (35.3-44.9); Mean Corpuscular HGB Conc 30.9 g/dL (31.6-35.5); Mean Corpuscular Hemoglobin 28.8 pg (28.0-33.3); Mean Corpuscular Volume 93.2 fL (83.0-100.0); Mean Platelet Volume 9.2 fL (9.4-12.4); Platelet Count 178 K/mcL (140-400); Red Blood Count 2.78 M/mcL (3.82-4.97); Red Cell Distribution Width 13.1 % (11.5-14.5); White Blood Count 6.2 K/mcL (4.3-11.1)
[2020-08-22 04:56] LABS: Calcium 8.5 mg/dL (8.6-10.3); Magnesium 2.2 mg/dL (1.6-2.6); Phosphorous 4.6 mg/dL (2.7-4.5); Potassium 4.4 mEq/L (3.5-5.1)
[2020-08-22] MEDS: *HR* OxyCODONE/APAP 10/325 TABLET PO PRN ×3 (06:07→18:36)
[2020-08-22] MEDS ORDERED: 0.9 % Sodium Chloride 250 ML IVC PRN (07:12)
[2020-08-22] MEDS ORDERED: *HR* Heparin 10,000 UNIT/10 ML VIAL IV PRN (07:12)
[2020-08-22] MEDS ORDERED: 0.9 % Sodium Chloride 1,000 ML PRIME SCH (07:15)
[2020-08-22] MEDS: lamoTRIgine 100 MG TABLET PO SCH ×2 (08:25→20:30)
[2020-08-22] MEDS: Aspirin Enteric Coated 81 MG Tablet PO SCH (08:25)
[2020-08-22] MEDS: amLODIPine 5 MG TABLET PO SCH (08:25)
[2020-08-22] MEDS: Cyanocobalamin (B-12) 1,000 MCG TABLET PO SCH (08:25)
[2020-08-22] MEDS: Sennosides/Docusate Sodium TABLET PO SCH ×2 (08:26→20:30)
[2020-08-22] MEDS: Magnesium Oxide 400 MG TABLET PO SCH ×2 (08:26→20:29)
[2020-08-22] MEDS: Renal Vitamin 1 CAP CAPSULE PO SCH (08:27)
[2020-08-22] MEDS: Chlorhexidine Rinse 15 ML MOUTHWASH MM SCH ×2 (08:27→20:29)
[2020-08-22] MEDS: *HR* Heparin 5,000 UNIT/ML VIAL SQ SCH ×2 (08:27→17:03)
[2020-08-22] MEDS: ALPRAZolam 1 MG TABLET PO SCH ×2 (08:27→20:30)
[2020-08-22] MEDS: Fluticasone Propionate Nasal 50 MCG/SPRAY BOTTLE NS SCH ×2 (09:22→20:30)
[2020-08-23] MEDS: *HR* Heparin 5,000 UNIT/ML VIAL SQ SCH ×3 (00:23→18:49)
[2020-08-23] MEDS: *HR* OxyCODONE/APAP 10/325 TABLET PO PRN ×4 (01:51→20:26)
[2020-08-23 05:30] LABS: Hematocrit 26.8 % (35.3-44.9); Hemoglobin 8.2 g/dL (11.5-15.4); Mean Corpuscular HGB Conc 30.6 g/dL (31.6-35.5); Mean Corpuscular Hemoglobin 28.9 pg (28.0-33.3); Mean Corpuscular Volume 94.4 fL (83.0-100.0); Platelet Count 205 K/mcL (140-400); Red Blood Count 2.84 M/mcL (3.82-4.97); Red Cell Distribution Width 13.2 % (11.5-14.5); White Blood Count 5.6 K/mcL (4.3-11.1)
[2020-08-23 05:44] LABS: Calcium 8.5 mg/dL (8.6-10.3); Magnesium 2.2 mg/dL (1.6-2.6); Phosphorous 3.4 mg/dL (2.7-4.5)
[2020-08-23] MEDS: Magnesium Oxide 400 MG TABLET PO SCH ×2 (07:42→20:28)
[2020-08-23] MEDS: Sennosides/Docusate Sodium TABLET PO SCH ×2 (07:42→20:25)
[2020-08-23] MEDS: NIFEdipine XL (24 HR) 30 MG TAB.ER.24 PO SCH (07:42)
[2020-08-23] MEDS: Chlorhexidine Rinse 15 ML MOUTHWASH MM SCH ×2 (07:42→20:25)
[2020-08-23] MEDS: Aspirin Enteric Coated 81 MG Tablet PO SCH (07:42)
[2020-08-23] MEDS: ALPRAZolam 1 MG TABLET PO SCH ×2 (07:43→20:25)
[2020-08-23] MEDS: lamoTRIgine 100 MG TABLET PO SCH ×2 (07:44→20:28)
[2020-08-23] MEDS: Renal Vitamin 1 CAP CAPSULE PO SCH (07:44)
[2020-08-23] MEDS: Cyanocobalamin (B-12) 1,000 MCG TABLET PO SCH (07:44)
[2020-08-23] MEDS: Fluticasone Propionate Nasal 50 MCG/SPRAY BOTTLE NS SCH ×2 (07:45→20:25)
[2020-08-23] MEDS ORDERED: *HR* Midazolam HCl 2 MG/2 ML VIAL IVP ONE (08:48)
[2020-08-23] MEDS ORDERED: *HR* FentaNYL (PF) 100 MCG/2 ML VIAL IVP ONE (08:48)
[2020-08-23] MEDS ORDERED: CeFAZolin 2,000 MG/50 ML BAG IVPB ONE (08:49)
[2020-08-23] MEDS ORDERED: 0.9 % Sodium Chloride 500 ML ONE (08:50)
[2020-08-23] MEDS ORDERED: Heparin 1,000 UNITS/500 mL 500 ML ONE (08:55)
[2020-08-23] MEDS ORDERED: Lidocaine/EPI 1:100k 1% 50 ML VIAL ONE (08:55)
[2020-08-23] MEDS ORDERED: *HR* FentaNYL (PF) 100 MCG/2 ML VIAL ONE (08:56)
[2020-08-23] MEDS ORDERED: *HR* Midazolam HCl 2 MG/2 ML VIAL ONE (08:57)
[2020-08-23] MEDS ORDERED: *HR* Heparin 5,000 UNIT/ML VIAL ONE (09:07)
[2020-08-23] MEDS: Acetaminophen 325 MG TABLET PO PRN ×2 (10:22→18:37)
[2020-08-23] MEDS: Melatonin 3 MG TABLET PO PRN (20:26)
[2020-08-24] MEDS: Acetaminophen 325 MG TABLET PO PRN (01:17)
[2020-08-24] MEDS: *HR* Heparin 5,000 UNIT/ML VIAL SQ SCH ×4 (01:17→23:59)
[2020-08-24 01:44] LABS: Hematocrit 26.2 % (35.3-44.9); Hemoglobin 7.7 g/dL (11.5-15.4); Mean Corpuscular HGB Conc 29.4 g/dL (31.6-35.5); Mean Corpuscular Volume 95.3 fL (83.0-100.0); Mean Platelet Volume 9.1 fL (9.4-12.4); Platelet Count 218 K/mcL (140-400); Red Blood Count 2.75 M/mcL (3.82-4.97); Red Cell Distribution Width 13.4 % (11.5-14.5); White Blood Count 6.4 K/mcL (4.3-11.1)
[2020-08-24 02:13] LABS: Calcium 8.6 mg/dL (8.6-10.3); Magnesium 2.3 mg/dL (1.6-2.6); Phosphorous 3.6 mg/dL (2.7-4.5); Potassium 3.7 mEq/L (3.5-5.1)
[2020-08-24] MEDS: *HR* OxyCODONE/APAP 10/325 TABLET PO PRN ×4 (03:57→22:44)
[2020-08-24] MEDS: Magnesium Oxide 400 MG TABLET PO SCH ×2 (08:27→21:02)
[2020-08-24] MEDS: Chlorhexidine Rinse 15 ML MOUTHWASH MM SCH ×2 (08:27→21:02)
[2020-08-24] MEDS: Cyanocobalamin (B-12) 1,000 MCG TABLET PO SCH (08:27)
[2020-08-24] MEDS: NIFEdipine XL (24 HR) 30 MG TAB.ER.24 PO SCH (08:28)
[2020-08-24] MEDS: Aspirin Enteric Coated 81 MG Tablet PO SCH (08:28)
[2020-08-24] MEDS: Renal Vitamin 1 CAP CAPSULE PO SCH (08:28)
[2020-08-24] MEDS: lamoTRIgine 100 MG TABLET PO SCH ×2 (08:28→21:02)
[2020-08-24] MEDS: ALPRAZolam 1 MG TABLET PO SCH ×2 (08:28→21:02)
[2020-08-24] MEDS: polyethylene glycoL 3350 17 GM POWD.PACK PO SCH (08:29)
[2020-08-24] MEDS: Sennosides/Docusate Sodium TABLET PO SCH ×2 (08:29→21:01)
[2020-08-24] MEDS: Fluticasone Propionate Nasal 50 MCG/SPRAY BOTTLE NS SCH ×2 (12:29→21:07)
[2020-08-24] MEDS ORDERED: 0.9 % Sodium Chloride 250 ML IVC PRN (17:28)
[2020-08-24] MEDS: Melatonin 3 MG TABLET PO PRN (21:02)
[2020-08-25] MEDS ORDERED: *HR* Heparin 10,000 UNIT/10 ML VIAL IV PRN (00:01)
[2020-08-25 00:38] LABS: Hematocrit 27.2 % (35.3-44.9); Hemoglobin 8.1 g/dL (11.5-15.4); Mean Corpuscular HGB Conc 29.8 g/dL (31.6-35.5); Mean Corpuscular Hemoglobin 28.6 pg (28.0-33.3); Mean Corpuscular Volume 96.1 fL (83.0-100.0); Mean Platelet Volume 9.1 fL (9.4-12.4); Platelet Count 242 K/mcL (140-400); Red Blood Count 2.83 M/mcL (3.82-4.97); Red Cell Distribution Width 13.3 % (11.5-14.5); White Blood Count 7.8 K/mcL (4.3-11.1)
[2020-08-25 00:40] LABS: Calcium 8.6 mg/dL (8.6-10.3); Magnesium 2.4 mg/dL (1.6-2.6); Phosphorous 3.8 mg/dL (2.7-4.5); Potassium 3.5 mEq/L (3.5-5.1)
[2020-08-25] MEDS: *HR* OxyCODONE/APAP 10/325 TABLET PO PRN ×3 (04:42→17:11)
[2020-08-25] MEDS: Aspirin Enteric Coated 81 MG Tablet PO SCH (08:09)
[2020-08-25] MEDS: *HR* Heparin 5,000 UNIT/ML VIAL SQ SCH ×2 (08:09→17:05)
[2020-08-25] MEDS: Cyanocobalamin (B-12) 1,000 MCG TABLET PO SCH (08:10)
[2020-08-25] MEDS: Chlorhexidine Rinse 15 ML MOUTHWASH MM SCH (08:10)
[2020-08-25] MEDS: Sennosides/Docusate Sodium TABLET PO SCH (08:10)
[2020-08-25] MEDS: Magnesium Oxide 400 MG TABLET PO SCH (08:10)
[2020-08-25] MEDS: Renal Vitamin 1 CAP CAPSULE PO SCH (08:10)
[2020-08-25] MEDS: lamoTRIgine 100 MG TABLET PO SCH (08:10)
[2020-08-25] MEDS: polyethylene glycoL 3350 17 GM POWD.PACK PO SCH (08:10)
[2020-08-25] MEDS ORDERED: NIFEdipine XL (24 HR) 60 MG TAB.ER.24 PO SCH (09:00)
[2020-08-25] MEDS: Fluticasone Propionate Nasal 50 MCG/SPRAY BOTTLE NS SCH (13:34)
[2020-08-25 15:45] VITALS: BP 129/76
== END 2020-08-25 19:30 | disposition other institution (70) | DRG 640 ==
LOC: SUATTDRO 17:32 → ICNU 17:32 → 2NENU 08-10 17:36
PROVIDERS: ADMIT Pediatrics; ATTEND Internal Medicine
PROC: IRPERMA (2020-08-23 08:00)